=== PATIENT | female | born 1935 | race Caucasian/White ===

== ENCOUNTER → 2019-07-08 15:58 | Outpatient (BNVA) | payer MEDICARE, BC, SELFPAY | PROVIDERS: Visit Provider Nurse Practitioner Family | DX: J02.9 Acute pharyngitis, unspecified (principal); J01.90 Acute sinusitis, unspecified; I10 Essential (primary) hypertension | CPT/HCPCS: 87880 ==

== ENCOUNTER → 2019-12-22 09:55 | Outpatient (BNVA) | payer MEDICARE, BC, SELFPAY | PROVIDERS: Visit Provider Nurse Practitioner Family | DX: Z20.828 Contact with and (suspected) exposure to other viral communicable diseases (principal) | CPT/HCPCS: 87635 ==

== ENCOUNTER → 2019-12-29 11:18 | Outpatient (BNVA) | payer MEDICARE, BC, SELFPAY | PROVIDERS: Visit Provider Nurse Practitioner Family | DX: E03.9 Hypothyroidism, unspecified (principal); E55.9 Vitamin D deficiency, unspecified; I10 Essential (primary) hypertension | CPT/HCPCS: 80053; 80061; 82306; 84443; 85025 ==

== ENCOUNTER → 2020-09-14 13:10 | Outpatient (BNVA) | payer MEDICARE, BC, SELFPAY | PROVIDERS: PCP Nurse Practitioner Family; Visit Provider Nurse Practitioner Family | DX: E55.9 Vitamin D deficiency, unspecified (principal); I10 Essential (primary) hypertension; E78.5 Hyperlipidemia, unspecified; M25.551 Pain in right hip; Z79.899 Other long term (current) drug therapy | CPT/HCPCS: 80053; 80061; 82306; 84443; 85025 ==

== ENCOUNTER → 2021-02-21 17:16 | Outpatient (BNVA) | payer MEDICARE, BC, SELFPAY | PROVIDERS: PCP Nurse Practitioner Family; Visit Provider Nurse Practitioner Family | DX: J32.9 Chronic sinusitis, unspecified (principal) | CPT/HCPCS: 87400; 87635 ==

== ENCOUNTER → 2021-03-10 11:54 | Outpatient (BNVA) | payer MEDICARE, BC, SELFPAY | PROVIDERS: PCP Nurse Practitioner Family; Visit Provider Nurse Practitioner Family | DX: E78.5 Hyperlipidemia, unspecified (principal); E03.9 Hypothyroidism, unspecified; E55.9 Vitamin D deficiency, unspecified; K21.9 Gastro-esophageal reflux disease without esophagitis; I10 Essential (primary) hypertension | CPT/HCPCS: 80053; 80061; 82306; 82607; 84439; 84443; 85025 ==

== ENCOUNTER → 2022-04-11 17:07 | Outpatient (BNVA) | payer MEDICARE, BC, SELFPAY | PROVIDERS: PCP Nurse Practitioner Family; Visit Provider Nurse Practitioner Family | DX: I10 Essential (primary) hypertension (principal); E55.9 Vitamin D deficiency, unspecified; R73.9 Hyperglycemia, unspecified | CPT/HCPCS: 80053; 80061; 82306; 83036; 84443; 85025 ==

== ENCOUNTER 2022-07-07 12:10 | Observation (INO) | payer MEDICARE, BC, SELFPAY ==
[2022-07-07] VITALS (8 sets, daily range): BP systolic 138–197; BP diastolic 69–83; PULSE 63–87; RESP 16–21; TEMP 36.6–36.7; O2SAT 96–97; BMI 27.8
--- NOTE | 2022-07-07 12:21 | W.ED.DIZZY ---
HPI - Dizziness General: Chief Complaint: Dizziness Stated Complaint: pt thinks she is having mini strokes Time Seen by Provider: 07/07/22 12:15 History of Present Illness: HPI Narrative: Ms Gardiner is an 87-year-old lady with history of hypertension, hyperlipidemia, prior stroke, thyroid disorder presenting to the emergency department for concern over possible recurrent TIA symptoms. She endorses 3 days ago having sudden onset of unsteady feeling associated with headache and higher than normal blood pressure. Since that time she has had recurrence and more constant symptoms starting today. She endorses a slightly abnormal feeling in her right hand associated with this. Also endorses chest discomfort with the higher than normal blood pressure without other typical cardiac features. Denies any infectious symptoms. Overall course has increased in duration and intensity. Intensity is overall mild to moderate. No other specific changes in health, exacerbating, or alleviating factors identified. Onset (ago): day(s) Timing: intermittent Description: off-balance History of similar symptoms: Yes Exacerbating factors: nothing Relieving factors: nothing Associated symptoms: Reports chest pain, headache(s) and malaise Associated neuro symptoms: Reports extremity weakness; Deny numbness in extremities or visual changes Review of Systems General: Reports: 10 or more systems reviewed and unremarkable except in HPI and below Const: Reports: malaise Card: Reports: chest pain Neuro: Reports: headache(s); Denies: numbness in extremities PFSH ED PFSH: Medical History Chronic osteoarthritis Essential (primary) hypertension Hyperlipidemia, unspecified Metabolic syndrome Migraine with aura and with status migrainosus, not intractable Vitamin D deficiency Surgical History H/O: hysterectomy History of back surgery (~2010) Hx of breast biopsy (~1983) negative results Family History (System 07/13/22 @ 11:40 by Amy Dumont) Brother Cancer lung Father Stroke Mother Pulmonary embolism Social History (System 07/13/22 @ 11:40 by Amy Dumont) Smoking and tobacco status: never smoked Alcohol intake: never Lives independently: Yes Household members: children Housing: House Marital status: / Current occupational status: retired Current gender identity: Female Physical Exam Const: COMMON NORMALS: patient oriented x3 and alert GENERAL APPEARANCE: cooperative and well developed HENMT: COMMON NORMALS: normocephalic, atraumatic, moist oral mucous membranes and oropharynx normal HEAD & SCALP: normocephalic and atraumatic Eye: COMMON NORMALS: conjunctivae normal CONJUNCTIVA: Yes conjunctivae normal SCLERA: sclerae normal Neck/C-Spine: COMMON NORMALS: supple GENERAL: Yes trachea midline Resp: COMMON NORMALS: normal respiratory effort EFFORT & INSPECTION: Yes able to speak in complete sentences Cardio: COMMON NORMALS: regular rate and regular rhythm RATE: regular rate RHYTHM: regular rhythm GI: COMMON NORMALS: Soft to palpation PALPATION: Yes Soft to palpation and No Tenderness to palpation present (GI) PERCUSSION: normal to percussion Extremity: GENERAL: Yes normal exam except as noted and No edema Neuro: COMMON NORMALS: patient oriented x3, CN's II-XII intact bilaterally, moves all extremities, no focal motor deficits, no sensory deficits noted and gait normal SENSORIUM/ORIENTATION: Yes alert and No Orientation impaired Psych: COMMON NORMALS: mental status grossly normal and Normal thought process present THOUGHT PROCESS: Normal thought process present Course Vital Signs: Vital signs: Vital Signs Temperature 98.2 F 07/08/22 12:00 Pulse Rate 58 L 07/08/22 12:00 Respiratory Rate 15 07/08/22 12:00 Blood Pressure 152/75 07/08/22 12:00 Pulse Oximetry 96 07/08/22 12:00 Oxygen Delivery Me thod Room Air 07/08/22 12:00 MDM - Dizziness Medical Decision Making 87-year-old lady presented transient strokelike symptoms. Exam as above with no focal current symptoms. She is nontoxic in appearance. EKG demonstrates sinus rhythm with left axis deviation, there are nonspecific ST segment abnormalities, no STEMI. Labs with no significant hematologic or metabolic abnormality to explain symptoms. Negative range 2-hour delta troponin. No UTI. Chest x-ray with no lobar consolidation or pneumothorax. CT/CTA demonstrates no large vessel occlusion, intracranial hemorrhage or mass. Discussed with [facility] stroke neurologist. Recommend 24-hour observation with MRI. Recommend permissive hypertension up to 220 systolic for 1 day and subsequently few weeks of 160 systolic permissive hypertension. Dual antiplatelet therapy with increase of aspirin to 325 mg daily. Increase statin. Most likely allergy patient symptoms is brain TIAs. The results of ED evaluation were discussed with the patient including plan for admission due to requirement for level of care not available if discharged to prevent significant worsening/deterioration. Patient agreeable with plan. Discussed with hospitalist service who was agreeable to admit patient. Medical Records I reviewed the patient's medical records. Lab Data I reviewed the patient's lab results. 07/08/22 04:45 07/08/22 04:45 Radiology Impressions Chest X-Ray 07/07/22 12:33 IMPRESSION: No acute findings. Head/Neck CTA 07/07/22 12:39 IMPRESSION: No large vessel stenosis or occlusion. IMPRESSION: No stenosis or occlusion. REFERENCES: NASCET CRITERIA. The degree of stenosis in the cervical segment of the internal carotid artery is based on NASCET criteria. Normal is no stenosis. Mild is less than 50% stenosis. Moderate is 50-69% stenosis. Severe is 70% to 99% stenosis. Total occlusion is no detectable patent lumen. Laboratory Results WBC 7.0 10^3/uL (4.0-10.0) 07/07/22 12:59 RBC 4.16 10^6/uL (4.1-5.3) 07/07/22 12:59 Hgb 12.7 g/dL (11.5-15.3) 07/07/22 12:59 Hct 39.9 % (37.0-47.0) 07/07/22 12:59 MCV 95.9 fl (81-99) 07/07/22 12:59 MCH 30.5 pg (28.0-34.0) 07/07/22 12:59 MCHC 31.8 g/dL (30.0-36.0) 07/07/22 12:59 RDW 13.2 % (12.1-15.1) 07/07/22 12:59 Plt Count 251 10^3/cmm (130-400) 07/07/22 12:59 MPV 11.3 fL (7.4-10.4) H 07/07/22 12:59 Neut % (Auto) 61.9 % 07/07/22 12:59 Lymph % (Auto) 25.6 % 07/07/22 12:59 [place] % (Auto) 9.1 % 07/07/22 12:59 Eos % (Auto) 2.4 % 07/07/22 12:59 Baso % (Auto) 0.4 % 07/07/22 12:59 Neut # (Auto) 4.30 10^3/uL (1.8-7.7) 07/07/22 12:59 Lymph # (Auto) 1.8 10^3/uL (0.8-4.8) 07/07/22 12:59 [place] # (Auto) 0.6 10^3/uL (0.2-0.9) 07/07/22 12:59 Eos # (Auto) 0.2 10^3/uL (0.0-0.8) 07/07/22 12:59 Baso # (Auto) 0.0 10^3/uL (0.0-0.1) 07/07/22 12:59 Nucleated RBC % (auto) 0 % 07/07/22 12:59 Nucleated RBCs # 0.0 /100WBC 07/07/22 12:59 Sodium 142 mmol/L (136-145) 07/07/22 12:59 Potassium 3.8 mmol/L (3.5-5.1) 07/07/22 12:59 Chloride 104 mmol/L (98-107) 07/07/22 12:59 Carbon Dioxide 24 mmol/L (22-29) 07/07/22 12:59 Anion Gap 17.8 (5-19) 07/07/22 12:59 BUN 18 mg/dL (8-23) 07/07/22 12:59 Creatinine 1.0 mg/dL (0.5-0.9) H 07/07/22 12:59 GFR Calculation Not Reportable 07/07/22 12:59 Glucose 132 mg/dL (65-115) H 07/07/22 12:59 Estimat Average Glucose 126 07/07/22 12:57 Hemoglobin A1c 6.0 % (4.0-6.0) 07/07/22 12:57 Calculated Osmolality 298 mOsm/kg (285-295) H 07/07/22 12:59 Calcium 9.9 mg/dL (8.5-10.5) 07/07/22 12:59 Magnesium 1.7 mg/dL (1.7-2.3) 07/07/22 12:59 Total Bilirubin 0.2 mg/dL (0.15-1.2) 07/07/22 12:59 AST 18 U/L (0-32) 07/07/22 12:59 ALT 15 U/L (0-33) 07/07/22 12:59 Alkaline Phosphatase 62 U/L (35-105) 07/07/22 12:59 Troponin T Baseline 11 ng/L (0-10) H 07/07/22 12:59 Troponin T 120 Minute 9.59 ng/L (0-10) 07/07/22 14:50 Delta Troponin T -1.41 ABS# (0-10) L 07/07/22 14:50 NT-Pro-B Natriuret Pep 309 pg/mL (0-450) 07/07/22 12:59 NT-Pro-B Natriuret Pep 318 pg/mL (0-450) 07/07/22 12:59 Total Protein 7.1 g/dL (6.6-8.7) 07/07/22 12:59 Albumin 4.8 g/dL (3.5-5.2) 07/07/22 12:59 Globulin 2.3 g/dL (1.3-4.6) 07/07/22 12:59 Triglycerides 128 mg/dL (0-150) 07/07/22 12:59 Cholesterol 153 mg/dL (0-200) 07/07/22 12:59 LDL Cholesterol, Calc 78 mg/dL (50-129) 07/07/22 12:59 HDL Cholesterol 49 mg/dL (60-100) L 07/07/22 12:59 LDL/HDL Ratio 1.59 RATIO (0.00-3.22) 07/07/22 12:59 Cholesterol/HDL Ratio 3.12 mg/dL (0.0-4.40) 07/07/22 12:59 TSH 3.31 uIU/mL (0.27-4.20) 07/07/22 12:59 Urine Color Yellow (Yellow) 07/07/22 12:50 Urine Appearance Clear (CLEAR) 07/07/22 12:50 Urine pH 5 (5-7) 07/07/22 12:50 Ur Specific [place] 1.010 (1.005-1.030) 07/07/22 12:50 Urine Protein Neg (Negative) 07/07/22 12:50 Urine Glucose (UA) Norm (Normal) 07/07/22 12:50 Urine Ketones Negative (Negative) 07/07/22 12:50 Urine Blood Neg (Negative) 07/07/22 12:50 Urine Nitrate Negative (Negative) 07/07/22 12:50 Urine Bilirubin Neg (Negative) 07/07/22 12:50 Urine Urobilinogen Norm mg/dL (Negative) 07/07/22 12:50 Ur Leukocyte Esterase Negative (Negative) 07/07/22 12:50 Discharge Plan Discharge Patient Disposition: Placed in Observation Admit Provider: Trevor Lindquist Clinical Impression: Stroke-like symptoms Discharge Diet: Cardiac Discharge Activity: Resume usual activity Coding Level of Care Code ED Prorate Clerk for Jaren Moralez
--- NOTE | 2022-07-07 12:33 | ECG_ITS ---
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1935 Requested By: Maury Rodriguez Order Number: [id number] Иван MD: Franco Brown Measurements Intervals [place] Rate: 62 P: 156 MN: 197 QRS: -22 QRSD: 97 T: -9 QT: 383 QTc: 391 Interpretive Statements SINUS RHYTHM VOLTAGE CRITERIA FOR LVH [MEETS CRITERIA IN ONE OF: R(aVL), S(V1), R(V5), R(V5/V6)+S(V1)] POSSIBLE ANTEROSEPTAL MYOCARDIAL INFARCTION , OF INDETERMINATE AGE [30 ms Q WAVE IN V1-V4] Compared to ECG 04/26/2018 17:37:29 Myocardial infarct finding now present Electronically Signed On 07-08-2022 19:02:09 CDT by Franco Brown [id number]
--- NOTE | 2022-07-07 12:33 | XRR_ITS ---
PROCEDURE INFORMATION: Exam: XR Chest Exam date and time: 07/07/2022 12:38 PM Age: 87 years old Clinical indication: Other: Chest pressure; Additional info: Chest discomfort TECHNIQUE: Imaging protocol: Radiologic exam of the chest. Views: 1 view. COMPARISON: CR XR chest 1V [id number] 04/16/2018 9:35 AM FINDINGS: Lungs: Unremarkable. No consolidation. Pleural spaces: Unremarkable. No pleural effusion. No pneumothorax. Heart/Mediastinum: Unremarkable. No cardiomegaly. Bones/joints: Unremarkable. Similar findings are present comparing to prior examination XR/XR chest 1V portable [id number] IMPRESSION: No acute findings.
--- NOTE | 2022-07-07 12:39 | CTR_ITS ---
PROCEDURE INFORMATION: Exam: CTA Head With Contrast, Arteriography Exam date and time: 07/07/2022 2:00 PM Age: 87 years old Clinical indication: Vertigo; Additional info: TIA symptoms, unsteady, R hand paresthesia, atypical headaches TECHNIQUE: Imaging protocol: Computed tomographic angiography of the head with contrast. Exam focused on the arteries. 3D rendering (Not supervised by radiologist): MIP and/or 3D reconstructed images were created by the technologist. Radiation optimization: All CT scans at this facility use at least one of these dose optimization techniques: automated exposure control; mA and/or kV adjustment per patient size (includes targeted exams where dose is matched to clinical indication); or iterative reconstruction. Contrast material: OMNI 350; Contrast volume: 100 ml; Contrast route: INTRAVENOUS (IV); REPORTING DATA: Count of CT and Cardiac NM exams in prior 12 months: This patient has received 0 known CTs and 0 known cardiac nuclear medicine studies in the 12 months prior to the current study. COMPARISON: MR head wo con* [id number] 05/21/2018 6:38 PM RADIATION DOSE METRICS: Total DLP (mGy-cm): 1643 FINDINGS: ANTERIOR CIRCULATION: Right internal carotid artery: Intracranial segment is patent with no significant stenosis. No aneurysm. Right middle cerebral artery: No occlusion or significant stenosis. No aneurysm. Right anterior cerebral artery: No occlusion or significant stenosis. No aneurysm. Left internal carotid artery: Intracranial segment is patent with no significant stenosis. No aneurysm. Left middle cerebral artery: No occlusion or significant stenosis. No aneurysm. Left anterior cerebral artery: No occlusion or significant stenosis. No aneurysm. POSTERIOR CIRCULATION: Right vertebral artery: No occlusion or significant stenosis. No aneurysm. Left vertebral artery: No occlusion or significant stenosis. No aneurysm. Basilar artery: No occlusion or significant stenosis. No aneurysm. Right posterior cerebral artery: No occlusion or significant stenosis. No aneurysm. Left posterior cerebral artery: No occlusion or significant stenosis. No aneurysm. Brain: No definite mass, mass effect, or midline shift. Cerebral ventricles: No ventriculomegaly. Bones/joints: Unremarkable. No acute fracture. Soft tissues: Unremarkable. PROCEDURE INFORMATION: Exam: CTA Neck With Contrast Exam date and time: 07/07/2022 2:00 PM Age: 87 years old Clinical indication: Vertigo; Additional info: TIA symptoms, unsteady, R hand paresthesia, atypical headaches TECHNIQUE: Imaging protocol: Computed tomographic angiography of the neck with contrast. 3D rendering (Not supervised by radiologist): MIP and/or 3D reconstructed images were created by the technologist. Radiation optimization: All CT scans at this facility use at least one of these dose optimization techniques: automated exposure control; mA and/or kV adjustment per patient size (includes targeted exams where dose is matched to clinical indication); or iterative reconstruction. Contrast material: OMNI 350; Contrast volume: 100 ml; Contrast route: INTRAVENOUS (IV); REPORTING DATA: Count of CT and Cardiac NM exams in prior 12 months: This patient has received 0 known CTs and 0 known cardiac nuclear medicine studies in the 12 months prior to the current study. COMPARISON: CT angio neck [id number] 04/27/2018 3:17 PM RADIATION DOSE METRICS: Total DLP (mGy-cm): 925.7 FINDINGS: Right common carotid artery: No stenosis. No dissection or occlusion. Right internal carotid artery: No stenosis of the extracranial segment. No dissection or occlusion. Calcification near the proximal ICA Right external carotid artery: No occlusion or stenosis of the origin. Left common carotid artery: No stenosis. No dissection or occlusion. Left internal carotid artery: No stenosis of the extracranial segment. No dissection or occlusion. Nonocclusive calcification of the proximal ICA Left external carotid artery: No occlusion or stenosis of the origin. Right vertebral artery: No stenosis. No dissection or occlusion. Left vertebral artery: No stenosis. No dissection or occlusion. Soft tissues: Normal. No significant soft tissue swelling. Bones/joints: No acute fracture. CT/CT angio headneck* [id number] IMPRESSION: No large vessel stenosis or occlusion. IMPRESSION: No stenosis or occlusion. REFERENCES: NASCET CRITERIA. The degree of stenosis in the cervical segment of the internal carotid artery is based on NASCET criteria. Normal is no stenosis. Mild is less than 50% stenosis. Moderate is 50-69% stenosis. Severe is 70% to 99% stenosis. Total occlusion is no detectable patent lumen.
[2022-07-07 13:22] LABS: Basophils % 0.4 %; Eosinophils # 0.2 10^3/uL (0.0-0.8); Eosinophils % 2.4 %; Hematocrit 39.9 % (37.0-47.0); Hemoglobin 12.7 g/dL (11.5-15.3); Lymphocytes # 1.8 10^3/uL (0.8-4.8); Lymphocytes % 25.6 %; Mean Corpuscular HGB Conc 31.8 g/dL (30.0-36.0); Mean Corpuscular Hemoglobin 30.5 pg (28.0-34.0); Mean Corpuscular Volume 95.9 fl (81-99); Mean Platelet Volume 11.3 fL (7.4-10.4); Monocytes # 0.6 10^3/uL (0.2-0.9); Monocytes % 9.1 %; Neutrophils % 61.9 %; Nucleated Red Blood Cells % 0 %; Platelet Count 251 10^3/cmm (130-400); Red Blood Count 4.16 10^6/uL (4.1-5.3); Red Cell Distribution Width 13.2 % (12.1-15.1)
[2022-07-07 13:44] LABS: Troponin(5th) Baseline 11 ng/L (0-10)
[2022-07-07 13:46] LABS: Alanine Aminotransferase 15 U/L (0-33); Albumin Level 4.8 g/dL (3.5-5.2); Alkaline Phosphatase 62 U/L (35-105); Anion Gap 17.8 (5-19); Aspartate Amino Transferase 18 U/L (0-32); Blood Urea Nitrogen 18 mg/dL (8-23); Calcium 9.9 mg/dL (8.5-10.5); Carbon Dioxide 24 mmol/L (22-29); Chloride 104 mmol/L (98-107); Globulin 2.3 g/dL (1.3-4.6); Glucose 132 mg/dL (65-115); Magnesium 1.7 mg/dL (1.7-2.3); Osmolality Calculated 298 mOsm/kg (285-295); Potassium 3.8 mmol/L (3.5-5.1); Sodium 142 mmol/L (136-145); Total Bilirubin 0.2 mg/dL (0.15-1.2); Total Protein 7.1 g/dL (6.6-8.7)
[2022-07-07 13:59] LABS: Add Urine Microscopic? NO; Charge for UA Resulting for Rev
[2022-07-07 14:15] LABS: Bilirubin Urine Neg (Negative); Blood Urine Neg (Negative); Glucose Urine UA Norm (Normal); Ketones Urine Negative (Negative); Leukocyte Esterase Urine Negative (Negative); Nitrate Urine Negative (Negative); Protein Urine Neg (Negative); Urine Appearance Clear (CLEAR); Urine Color Yellow (Yellow); Urobilinogen Urine Norm (Negative); pH Urine 5 (5-7)
--- NOTE | 2022-07-07 14:33 | ECG_ITS ---
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1935 Requested By: Maury Rodriguez Order Number: [id number] Иван MD: Franco Brown Measurements Intervals [place] Rate: 63 P: 115 AK: 188 QRS: -21 QRSD: 93 T: -13 QT: 378 QTc: 389 Interpretive Statements SINUS RHYTHM VOLTAGE CRITERIA FOR LVH [MEETS CRITERIA IN ONE OF: R(aVL), S(V1), R(V5), R(V5/V6)+S(V1)] POSSIBLE SEPTAL MYOCARDIAL INFARCTION , OF INDETERMINATE AGE [30 ms Q WAVE IN V1/V2] Compared to ECG 07/07/2022 12:38:27 No significant changes Electronically Signed On 07-08-2022 19:05:39 CDT by Franco Brown [email or web address]/store/[id number]
[2022-07-07] MEDS: iohexol 350 mg/mL 500 mL Btl (per mL) IV (14:37)
[2022-07-07 15:06] LABS: NT Pro B Type Natriuretic Pept 318 pg/mL (0-450); Thyroid Stimulating Hormone 3.31 uIU/mL (0.27-4.20)
[2022-07-07 15:24] LABS: Troponin 5 2HR 9.59 ng/L (0-10)
[2022-07-07 15:46] LABS: Troponin 5 2HR Delta -1.41 ABS# (0-10)
--- NOTE | 2022-07-07 16:29 | PM.HP ---
Providers/Chief Complaint Primary Care Provider: ALTON Claudio Chief Complaint: pt thinks she is having mini strokes History of Present Illness Citlalli Gardiner is a 87 year old female with a past medical history of CVA no residual deficits, history of bilateral cerebellar lacunar infarcts, history of hypertension, hyperlipidemia, hypothyroidism who presents to [facility] for the last 2 to 3 days she has had feelings of unsteadiness, dizziness, feeling not right in her head she tells me, no slurring of her words, but she does notice numbness of her right hand, no trouble coordinating, she does have trouble coming up with words, since then her blood pressures have been higher than normal, currently she is alert oriented x3, follows all commands, no focal weakness, no slurring of her words, no word finding difficulty NIH stroke scale 0, she does tell me that when she opens her eyes she feels more dizzy, or when she walks, she feels unsteady on her feet, no falls, no injuries, no dysuria, no hematuria, no chest pain, no palpitations, but she does feel a sensation of almost like a having a hot flash that comes on that starts at her neck level and radiates to her head, when she feels dizzy Review of Systems Const: Denies: fever(s) Eyes: Denies: change in vision ENMT: Denies: nasal congestion Resp: Denies: dyspnea, productive cough, non-productive cough or wheezing GI: Denies: abdominal pain, nausea or vomiting : Denies: dysuria Musc: Denies: neck pain or back pain Skin/Breast: Denies: rash Neuro: Reports: headache(s), numbness in extremities and dizziness; Denies: vertigo Psych: Denies: anxiety or depression Endo: Denies: polyuria or polydipsia Medications/Allergies Home Medications Medication Instructions Recorded Confirmed Last Taken Type aspirin 81 mg tablet,delayed 81 mg PO DAILY 04/21/19 07/07/22 07/07/22 History release ergocalciferol (vitamin D2) 50 mcg 2,000 unit PO DAILY 04/21/19 07/07/22 07/07/22 History (2,000 unit) tablet furosemide 40 mg tablet 40 mg PO QAM #90 tabs 04/11/22 07/07/22 07/07/22 Rx pantoprazole 40 mg tablet,delayed 40 mg PO DAILY #14 tabs 04/11/22 07/07/22 07/07/22 Rx release (Protonix) lisinopril 20 mg tablet 20 mg PO BID #180 tabs 04/18/22 07/07/22 07/07/22 Rx levothyroxine 25 mcg tablet 25 mcg PO DAILY #90 tabs 05/04/22 07/07/22 07/06/22 Rx amlodipine 10 mg tablet 10 mg PO BEDTIME 07/07/22 07/07/22 07/06/22 History clopidogrel 75 mg tablet 75 mg PO DAILY 07/07/22 07/07/22 07/07/22 History hydralazine 25 mg tablet 25 mg PO DAILY PRN Blood Pressure 07/07/22 07/07/22 Unknown History metoprolol tartrate 50 mg tablet 50 mg PO BID 07/07/22 07/07/22 07/07/22 History simvastatin 20 mg tablet 20 mg PO DAILY 07/07/22 07/07/22 07/06/22 History Allergies Allergy/AdvReac Type Severity Reaction Status Date / Time Penicillins Allergy Intermediate rash, Verified 04/11/22 15:00 vomiting venlafaxine [From Effexor] Allergy Unknown Unknown Verified 04/11/22 15:00 PFSH Acute PFSH: Medical History Chronic osteoarthritis Essential (primary) hypertension Hyperlipidemia, unspecified Metabolic syndrome Migraine with aura and with status migrainosus, not intractable Vitamin D deficiency Surgical History H/O: hysterectomy History of back surgery (~2010) Hx of breast biopsy (~1983) negative results Family History Brother Cancer lung Father Stroke Mother Pulmonary embolism Social History Smoking and tobacco status: never smoked Alcohol intake: never Lives independently: Yes Household members: children Housing: House Marital status: / Current occupational status: retired Current gender identity: Female Vitals/I&O/Wt Last Vital Signs Temp 97.9 F 07/07/22 12:17 Pulse 75 07/07/22 15:39 Resp 16 07/07/22 15:39 BP 144/83 07/07/22 15:39 Pulse Ox 97 07/07/22 12:17 O2 Del Method 07/07/22 12:17 Weight last 48 hrs Weight 68.946 kg Physical Exam Const: COMMON NORMALS: no acute distress and patient oriented x3 Resp: COMMON NORMALS: normal respiratory effort, No retractions, No use of accessory muscles and clear to auscultation bilaterally AUSCULTATION: clear to auscultation bilaterally Cardio: COMMON NORMALS: regular rate, regular rhythm, S1 normal heart sound present and S2 normal heart sound present RATE: regular rate RHYTHM: regular rhythm HEART SOUNDS: S1 normal heart sound present and S2 normal heart sound present GI: COMMON NORMALS: Normal to inspection, nondistended, normoactive bowel sounds present, Soft to palpation, non-tender and No hepatosplenomegaly present Extremity: COMMON NORMALS: no pedal edema Neuro: COMMON NORMALS: patient oriented x3, CN's II-XII intact bilaterally, moves all extremities and no focal motor deficits Psych: COMMON NORMALS: mental status grossly normal Data 07/07/22 12:59 07/07/22 12:59 A&P Assessment and plan (1) CVA (cerebral vascular accident): (2) GERD (gastroesophageal reflux disease): (3) Hyperlipidemia, unspecified: Qualifiers: Hyperlipidemia type: unspecified Qualified Code(s): E78.5 - Hyperlipidemia, unspecified (4) Essential (primary) hypertension: Plan Acute CVA -CT of the head no acute findings, CTA no acute findings -ER provider spoke to Krys, they recommended hospital admission, risk factor modification -We will allow for permissive hypertension treat if systolic greater than 220 or diastolic greater than 120 -Aspirin, Plavix, statin -Telemetry monitoring of cardiac echo -MRI of the brain -IV fluids -Monitor mentation closely -Does have a history of arachnoid cyst surgery, will consider MRI of the lumbar spine -Lipid panel, A1c -Full code -Lovenox for DVT prophylaxis Attestations Medical Necessity Statement*: Patient requires hospitalization for acute CVA, outpatient with observation Coding Level of Care Code Acute Code for [facility] Fwd Diagnoses CVA (cerebral vascular accident) I63.9 GERD (gastroesophageal reflux disease) K21.9 Hyperlipidemia, unspecified E78.5 Hyperlipidemia type: unspecified Essential (primary) hypertension I10
[2022-07-07 17:42] LABS: NT Pro B Type Natriuretic Pept 309 pg/mL (0-450)
--- NOTE | 2022-07-07 18:04 | ECG_ITS ---
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1935 Requested By: Maury Rodriguez Order Number: [id number] Reading MD: Franco Brown Measurements Intervals [place] Rate: 62 P: 65 SD: 187 QRS: -11 QRSD: 97 T: 15 QT: 388 QTc: 397 Interpretive Statements SINUS RHYTHM VOLTAGE CRITERIA FOR LVH [MEETS CRITERIA IN ONE OF: R(aVL), S(V1), R(V5), R(V5/V6)+S(V1)] POSSIBLE SEPTAL MYOCARDIAL INFARCTION , OF INDETERMINATE AGE [30 ms Q WAVE IN V1/V2] Compared to ECG 07/07/2022 14:37:29 No significant changes Electronically Signed On 07-08-2022 19:05:37 CDT by Franco Brown [id number]
[2022-07-07 19:53] LABS: Chol HDL Ratio 3.12 mg/dL (0.0-4.40); Cholesterol 153 mg/dL (0-200); HDL Cholesterol 49 mg/dL (60-100); LDL Cholesterol Calculated 78 mg/dL (50-129); LDL HDL Ratio 1.59 RATIO (0.00-3.22); Triglycerides 128 mg/dL (0-150)
[2022-07-07 20:21] LABS: Estmated Average Glucose 126
[2022-07-07 20:29] LABS: Troponin 5 6HR 12.36 ng/L (0-10); Troponin 5 6HR Delta 1.36 ng/L (0-12)
[2022-07-07] MEDS: enoxaparin 40 mg/0.4 mL Syringe SUBCUT (20:50)
[2022-07-07] MEDS: sodium chloride 0.9% 1,000 ML 75 ML IV (20:51)
[2022-07-07] MEDS: acetaminophen 325 mg Tablet 650 MG PO (21:41)
[2022-07-08 04:00] VITALS: BP 178/68; PULSE 60; RESP 15; TEMP 36.6; O2SAT 96
[2022-07-08 05:27] LABS: Basophils % 0.5 %; Eosinophils # 0.2 10^3/uL (0.0-0.8); Eosinophils % 2.7 %; Hematocrit 37.2 % (37.0-47.0); Hemoglobin 11.9 g/dL (11.5-15.3); Lymphocytes # 1.8 10^3/uL (0.8-4.8); Lymphocytes % 26.7 %; Mean Corpuscular Hemoglobin 30.4 pg (28.0-34.0); Mean Corpuscular Volume 94.9 fl (81-99); Mean Platelet Volume 11.7 fL (7.4-10.4); Monocytes # 0.8 10^3/uL (0.2-0.9); Monocytes % 11.8 %; Neutrophils # 3.86 10^3/uL (1.8-7.7); Neutrophils % 58.1 %; Nucleated Red Blood Cells % 0 %; Platelet Count 224 10^3/cmm (130-400); Red Blood Count 3.92 10^6/uL (4.1-5.3); Red Cell Distribution Width 13.3 % (12.1-15.1); White Blood Count 6.6 10^3/uL (4.0-10.0)
[2022-07-08 05:46] LABS: Alanine Aminotransferase 12 U/L (0-33); Albumin Level 4.2 g/dL (3.5-5.2); Alkaline Phosphatase 52 U/L (35-105); Anion Gap 13.4 (5-19); Aspartate Amino Transferase 16 U/L (0-32); Blood Urea Nitrogen 13 mg/dL (8-23); Calcium 8.9 mg/dL (8.5-10.5); Carbon Dioxide 23 mmol/L (22-29); Chloride 109 mmol/L (98-107); Globulin 2.1 g/dL (1.3-4.6); Glucose 102 mg/dL (65-115); Magnesium 1.6 mg/dL (1.7-2.3); Osmolality Calculated 294 mOsm/kg (285-295); Phosphorus 3.1 mg/dL (2.5-4.5); Potassium 3.4 mmol/L (3.5-5.1); Sodium 142 mmol/L (136-145); Total Bilirubin 0.3 mg/dL (0.15-1.2); Total Protein 6.3 g/dL (6.6-8.7)
--- NOTE | 2022-07-08 06:00 | USCV_ITS ---
Citlalli Gardiner Age: 87 Gender: F : 1935 Exam Date: 07/08/2022 10:23 Ordering Phys: Trevor Lindquist MD Technologist: GONZALO Exam Location: [facility] [place] Indication: cva BP: / HR: 67 Rhythm: Sinus Technical Quality: TDS MEASUREMENTS (Male / Female) Normal Values 2D ECHO LV Diastolic Diameter PLAX 5.0 cm 4.2 - 5.9 / 3.9 - 5.3 cm LV Systolic Diameter PLAX 3.5 cm IVS Diastolic Thickness 0.7 cm 0.6 - 1.0 / 0.6 - 0.9 cm IVS Systolic Thickness 1.2 cm LVPW Diastolic Thickness 0.7 cm 0.6 - 1.0 / 0.6 - 0.9 cm LVPW Systolic Thickness 1.0 cm LVOT Diameter 1.9 cm LV Ejection Fraction 2D Teich 57.3 % LV Ejection Fraction MOD 2C 55.5 % LV Ejection Fraction 2C AL 55.8 % LA Diameter 3.4 cm M-MODE Aortic Annulus Diameter 2.3 cm LA Ao Ratio MM 1.5 MV E Point Septal Separation 0.6 cm DOPPLER AV Peak Velocity 149.0 cm/s LVOT Peak Velocity 107.0 cm/s AV Area Cont Eq vti 2.2 cm squared AV Area Cont Eq pk 2.0 cm squared MV Area PHT 3.0 cm squared Mitral E to A Ratio 0.8 MV E' Velocity 60.0 cm/s Mitral E to MV E' Ratio 14.3 Mitral E to LV E' Lateral Ratio 12.4 Mitral E to LV E' Septal Ratio 17.1 TR Peak Velocity 297.4 cm/s TR Peak Gradient 35.4 mmHg TV Peak E Velocity 63.0 cm/s Right Atrial Pressure 6.0 mmHg Pulmonary Artery Systolic Pressu 41.4 mmHg PV Peak Velocity 103.0 cm/s FINDINGS Left Ventricle Normal left ventricular size, systolic function and wall thickness, with no regional wall motion abnormalities. Normal left ventricular wall thickness. Diastolic filling pattern consistent with stage I dysfunction (mild). Mildly increased left ventricular end diastolic volume. Right Ventricle The right ventricle is normal in size and function. Right Atrium The right atrium is normal in size. Left Atrium Moderately increased left atrial volume. Mildly increased left atrial area. Mitral Valve Structurally normal mitral valve without significant stenosis or prolapse. There is trace mitral regurgitation. Aortic Valve Structurally normal aortic valve without significant sclerosis or stenosis. There is no aortic regurgitation. Tricuspid Valve Structurally normal tricuspid valve without significant stenosis and trace regurgitation. Pulmonary artery systolic pressure mild to moderately elevated 45 mm Hg. Pulmonic Valve Structurally normal pulmonic valve without significant stenosis. There is trace pulmonic regurgitation. Pericardium Normal pericardium without effusion. Aorta Normal ascending aorta dimension. IVC The inferior vena cava not well visualized. CONCLUSIONS Normal left ventricular size, systolic function and wall thickness, with no regional wall motion abnormalities. Normal left ventricular wall thickness. Diastolic filling pattern consistent with stage I dysfunction (mild). Mildly increased left ventricular end diastolic volume. Moderately increased left atrial volume. Mildly increased left atrial area. Structurally normal tricuspid valve without significant stenosis and trace regurgitation. Pulmonary artery systolic pressure mild to moderately elevated 45 mm Hg. Franco Brown MD (Electronically Signed) Final Date: 08 July 2022 17:22 S
[2022-07-08 08:00] VITALS: BP 175/67; PULSE 69; RESP 14; TEMP 36.6; O2SAT 96
[2022-07-08] MEDS: potassium chloride ER 20 mEq Tablet 40 MEQ PO (08:54)
[2022-07-08] MEDS: lisinopril 20 mg Tablet PO (08:54)
[2022-07-08] MEDS: atorvastatin 40 mg Tablet PO (08:55)
[2022-07-08] MEDS: magnesium lactate 84 mg Tablet PO (08:55)
[2022-07-08] MEDS: levothyroxine 25 mcg Tablet PO (08:55)
[2022-07-08] MEDS: clopidogrel 75 mg Tablet PO (08:55)
[2022-07-08] MEDS: pantoprazole DR 40 mg Tablet PO (08:55)
[2022-07-08] MEDS: metoprolol tartrate 50 mg Tablet PO (08:55)
[2022-07-08] MEDS: aspirin 81 mg EC Tablet PO (08:55)
[2022-07-08] MEDS: acetaminophen 325 mg Tablet 650 MG PO (08:59)
--- NOTE | 2022-07-08 11:41 | PM.DCS ---
Discharge Providers Date of Admission: 07/07/22 15:38 Date of Discharge: July 08, 2022 Attending Provider at Admission: Trevor Lindquist MD Attending Provider at Discharge: Trevor Lindquist MD Primary Care Provider: ATLON Claudio Diagnoses at Discharge Discharge Diagnosis (1) CVA (cerebral vascular accident): Status: Acute (2) GERD (gastroesophageal reflux disease): Status: Acute (3) Hyperlipidemia, unspecified: Status: Acute Qualifiers: Hyperlipidemia type: unspecified Qualified Code(s): E78.5 - Hyperlipidemia, unspecified (4) Essential (primary) hypertension: Status: Acute Reason for Visit Reason for Visit: pt thinks she is having mini strokes Hospital Course Hospital Course Citlalli Gardiner is a 87 year old female with a past medical history of CVA no residual deficits, history of bilateral cerebellar lacunar infarcts, history of hypertension, hyperlipidemia, hypothyroidism who presents to [facility] for the last 2 to 3 days she has had feelings of unsteadiness, dizziness, feeling not right in her head she tells me, no slurring of her words, but she does notice numbness of her right hand, no trouble coordinating, she does have trouble coming up with words, since then her blood pressures have been higher than normal, currently she is alert oriented x3, follows all commands, no focal weakness, no slurring of her words, no word finding difficulty NIH stroke scale 0, she does tell me that when she opens her eyes she feels more dizzy, or when she walks, she feels unsteady on her feet, no falls, no injuries, no dysuria, no hematuria, no chest pain, no palpitations, but she does feel a sensation of almost like a having a hot flash that comes on that starts at her neck level and radiates to her head, when she feels dizzy Patient was admitted to [facility] for acute CVA, CT of the head no acute findings, CTA no acute findings, NIH stroke scale is 0, she is medically managed, continue aspirin, Plavix, statin, received IV fluids, permissive hypertension, clinically monitored. Overall she clinically remained asymptomatic, I recommended for her to spend another night in the hospital for monitoring and potentially MRI of the brain tomorrow however patient is adamant about discharge home. Discussed risks of early discharge, she voiced understanding, all questions answered, agreed to discharge today. She will be discharged this afternoon, after a blood pressure check. Discharged with close follow-up with primary care provider for blood pressure check. Follow-up with neurology in 2 weeks for consideration MRI of the brain, and MRI of the thoracic spine given her history of arachnoid cyst and surgery. Patient was advised if she has any recurrent strokelike symptoms, normal to go to emergency room Physical Exam Const: COMMON NORMALS: no acute distress and patient oriented x3 Resp: COMMON NORMALS: normal respiratory effort, No retractions, No use of accessory muscles and clear to auscultation bilaterally AUSCULTATION: clear to auscultation bilaterally Cardio: COMMON NORMALS: regular rate, regular rhythm, S1 normal heart sound present and S2 normal heart sound present RATE: regular rate RHYTHM: regular rhythm HEART SOUNDS: S1 normal heart sound present and S2 normal heart sound present GI: COMMON NORMALS: Normal to inspection, nondistended, normoactive bowel sounds present and non-tender Extremity: COMMON NORMALS: no pedal edema Neuro: COMMON NORMALS: patient oriented x3 Psych: COMMON NORMALS: mental status grossly normal Discharge Data Studies Completed and Pending Completed Studies During Hospitalization Category Date Time Status CTA head neck [CT angio headneck* [id number]] Stat Cat Scan 07/07/22 12:39 Completed XR chest 1V portable [id number] Stat Exams 07/07/22 12:33 Completed Pending at discharge Category Date Time Status Urinalysis Routine Lab 07/07/22 19:26 Ordered MR head wo con* [id number] Routine MRI 07/07/22 16:28 Ordered CV. echo complete* [id number] Stat Ultrasound 07/08/22 06:00 Ordered Radiology Impressions Chest X-Ray 07/07/22 12:33 IMPRESSION: No acute findings. Head/Neck CTA 07/07/22 12:39 IMPRESSION: No large vessel stenosis or occlusion. IMPRESSION: No stenosis or occlusion. REFERENCES: NASCET CRITERIA. The degree of stenosis in the cervical segment of the internal carotid artery is based on NASCET criteria. Normal is no stenosis. Mild is less than 50% stenosis. Moderate is 50-69% stenosis. Severe is 70% to 99% stenosis. Total occlusion is no detectable patent lumen. Laboratory Results WBC 6.6 10^3/uL (4.0-10.0) 07/08/22 04:45 RBC 3.92 10^6/uL (4.1-5.3) L 07/08/22 04:45 Hgb 11.9 g/dL (11.5-15.3) 07/08/22 04:45 Hct 37.2 % (37.0-47.0) 07/08/22 04:45 MCV 94.9 fl (81-99) 07/08/22 04:45 MCH 30.4 pg (28.0-34.0) 07/08/22 04:45 MCHC 32.0 g/dL (30.0-36.0) 07/08/22 04:45 RDW 13.3 % (12.1-15.1) 07/08/22 04:45 Plt Count 224 10^3/cmm (130-400) 07/08/22 04:45 MPV 11.7 fL (7.4-10.4) H 07/08/22 04:45 Neut % (Auto) 58.1 % 07/08/22 04:45 Lymph % (Auto) 26.7 % 07/08/22 04:45 [place] % (Auto) 11.8 % 07/08/22 04:45 Eos % (Auto) 2.7 % 07/08/22 04:45 Baso % (Auto) 0.5 % 07/08/22 04:45 Neut # (Auto) 3.86 10^3/uL (1.8-7.7) 07/08/22 04:45 Lymph # (Auto) 1.8 10^3/uL (0.8-4.8) 07/08/22 04:45 [place] # (Auto) 0.8 10^3/uL (0.2-0.9) 07/08/22 04:45 Eos # (Auto) 0.2 10^3/uL (0.0-0.8) 07/08/22 04:45 Baso # (Auto) 0.0 10^3/uL (0.0-0.1) 07/08/22 04:45 Nucleated RBC % (auto) 0 % 07/08/22 04:45 Nucleated RBCs # 0.0 /100WBC 07/08/22 04:45 Sodium 142 mmol/L (136-145) 07/08/22 04:45 Potassium 3.4 mmol/L (3.5-5.1) L 07/08/22 04:45 Chloride 109 mmol/L (98-107) H 07/08/22 04:45 Carbon Dioxide 23 mmol/L (22-29) 07/08/22 04:45 Anion Gap 13.4 (5-19) 07/08/22 04:45 BUN 13 mg/dL (8-23) 07/08/22 04:45 Creatinine 0.7 mg/dL (0.5-0.9) 07/08/22 04:45 GFR Calculation Not Reportable 07/08/22 04:45 Glucose 102 mg/dL (65-115) 07/08/22 04:45 Estimat Average Glucose 126 07/07/22 12:57 Hemoglobin A1c 6.0 % (4.0-6.0) 07/07/22 12:57 Calculated Osmolality 294 mOsm/kg (285-295) 07/08/22 04:45 Calcium 8.9 mg/dL (8.5-10.5) 07/08/22 04:45 Phosphorus 3.1 mg/dL (2.5-4.5) 07/08/22 04:45 Magnesium 1.6 mg/dL (1.7-2.3) L 07/08/22 04:45 Total Bilirubin 0.3 mg/dL (0.15-1.2) 07/08/22 04:45 AST 16 U/L (0-32) 07/08/22 04:45 ALT 12 U/L (0-33) 07/08/22 04:45 Alkaline Phosphatase 52 U/L (35-105) 07/08/22 04:45 Troponin T Baseline 11 ng/L (0-10) H 07/07/22 12:59 Troponin T 120 Minute 9.59 ng/L (0-10) 07/07/22 14:50 Delta Troponin T -1.41 ABS# (0-10) L 07/07/22 14:50 Troponin T Hi Sens 6Hr 12.36 ng/L (0-10) H 07/07/22 19:15 Troponin T Hi Sens 6Hr Delta 1.36 ng/L (0-12) 07/07/22 19:15 NT-Pro-B Natriuret Pep 309 pg/mL (0-450) 07/07/22 12:59 NT-Pro-B Natriuret Pep 318 pg/mL (0-450) 07/07/22 12:59 Total Protein 6.3 g/dL (6.6-8.7) L 07/08/22 04:45 Albumin 4.2 g/dL (3.5-5.2) 07/08/22 04:45 Globulin 2.1 g/dL (1.3-4.6) 07/08/22 04:45 Triglycerides 128 mg/dL (0-150) 07/07/22 12:59 Cholesterol 153 mg/dL (0-200) 07/07/22 12:59 LDL Cholesterol, Calc 78 mg/dL (50-129) 07/07/22 12:59 HDL Cholesterol 49 mg/dL (60-100) L 07/07/22 12:59 LDL/HDL Ratio 1.59 RATIO (0.00-3.22) 07/07/22 12:59 Cholesterol/HDL Ratio 3.12 mg/dL (0.0-4.40) 07/07/22 12:59 TSH 3.31 uIU/mL (0.27-4.20) 07/07/22 12:59 Urine Color Yellow (Yellow) 07/07/22 12:50 Urine Appearance Clear (CLEAR) 07/07/22 12:50 Urine pH 5 (5-7) 07/07/22 12:50 Ur Specific [place] 1.010 (1.005-1.030) 07/07/22 12:50 Urine Protein Neg (Negative) 07/07/22 12:50 Urine Glucose (UA) Norm (Normal) 07/07/22 12:50 Urine Ketones Negative (Negative) 07/07/22 12:50 Urine Blood Neg (Negative) 07/07/22 12:50 Urine Nitrate Negative (Negative) 07/07/22 12:50 Urine Bilirubin Neg (Negative) 07/07/22 12:50 Urine Urobilinogen Norm mg/dL (Negative) 07/07/22 12:50 Ur Leukocyte Esterase Negative (Negative) 07/07/22 12:50 Vitals Last Vital Signs Temp 97.9 F 07/08/22 08:00 Pulse 69 07/08/22 08:00 Resp 14 07/08/22 08:00 BP 175/67 07/08/22 08:00 Pulse Ox 96 07/08/22 08:00 O2 Del Method 07/08/22 08:00 Discharge Plan Discharge Patient Disposition: Home Condition: Stable Prescriptions: Continued ergocalciferol (vitamin D2) 2,000 unit tablet 2,000 unit PO DAILY aspirin 81 mg tablet,delayed release (DR/EC) 81 mg PO DAILY furosemide 40 mg tablet 40 mg PO QAM Qty: 90 3RF pantoprazole [Protonix] 40 mg tablet,delayed release (DR/EC) 40 mg PO DAILY Qty: 14 0RF lisinopril 20 mg tablet 20 mg PO BID Qty: 180 3RF levothyroxine 25 mcg tablet 25 mcg PO DAILY Qty: 90 0RF hydralazine 25 mg Tablet 25 mg PO DAILY PRN (Reason: Blood Pressure) clopidogrel 75 mg tablet 75 mg PO DAILY amlodipine 10 mg tablet 10 mg PO BEDTIME simvastatin 20 mg tablet 20 mg PO DAILY Rx Instructions: TAKE 1 TABLET DAILY metoprolol tartrate 50 mg tablet 50 mg PO BID Discharge Orders: Discharge Order (Routine); Ordered 07/08/22 Ordered By: Trevor Lindquist Referrals: Landy Juárez MD [Physician] - 1 week Virginie Caldwell FNP [Primary Care Provider] - Discharge Diet: Cardiac Discharge Activity: Resume usual activity Patient Instructions: Opioid Safety Activity Restrictions/Additional Instructions: - If any recurrent strokelike symptoms please go to emergency room or call 911 -See your primary care provider this week for blood pressure check Discharge Attestations Time Spent in Discharge Care*: greater than 30 min Quality Metrics Clinical Quality Measures [ Cerebrovascular Accident { Contraindication to Antithrombotic: None; antithrombotic prescribed; Contraindication to Anticoagulation: Overlap treatment not indicated; Contraindication to Statin: None; Statin prescribed;}] Coding Level of Care Code 54253 Total time (in minutes) for Discharge: 40 Diagnoses CVA (cerebral vascular accident) I63.9 GERD (gastroesophageal reflux disease) K21.9 Hyperlipidemia, unspecified E78.5 Hyperlipidemia type: unspecified Essential (primary) hypertension I10
[2022-07-08 11:59] VITALS: BP 175/67; PULSE 69; RESP 14; TEMP 36.6; O2SAT 96
[2022-07-08 12:00] VITALS: BP 152/75; PULSE 58; RESP 15; TEMP 36.8; O2SAT 96
== END 2022-07-08 12:30 | disposition home or self-care (01) ==
LOC: ER 15:38 → MEDSURG 17:23
PROVIDERS: Admitting Provider Family Medicine; Emergency Provider Emergency Medicine; PCP Nurse Practitioner Family; Visit Provider Family Medicine
DX: I63.9 Cerebral infarction, unspecified (principal); K21.9 Gastro-esophageal reflux disease without esophagitis; E78.5 Hyperlipidemia, unspecified; I10 Essential (primary) hypertension; E03.9 Hypothyroidism, unspecified; Z79.82 Long term (current) use of aspirin; Z79.02 Long term (current) use of antithrombotics/antiplatelets; E88.81 Metabolic syndrome and other insulin resistance
CPT/HCPCS: 36415; 70496; 70498; 71045; 80053; 80061; 81003; 83036; 83735; 83880; 84100; 84443; 84484; 85025; 93005; 93306; 96372; 97161; 97165; 99285; G0378; J1650; J7030; Q9967

== ENCOUNTER 2022-07-30 09:17 | Outpatient (CLI) | payer MEDICARE, BC, SELFPAY ==
--- NOTE | 2022-07-30 11:00 | MR_ITS ---
WS: [id number] MRI BRAIN WITH AND WITHOUT CONTRAST HISTORY: I63.9 - Cerebral infarction, unspecified COMPARISON: 05/21/2018 TECHNIQUE: Multiplanar imaging performed through the brain with MultiHance 15 ml's IV. No acute infarcts are seen. Siddiqi-white matter differentiation is well preserved. Normal diffusion luis e ging. Mild small vessel ischemic changes. Very similar to the prior study. Small bilateral chronic la cunar infarcts in the cerebellum. Normal flow voids. Mild cerebral atrophy greatest involving the frontal temporal lobes and cerebellum. Prominent ventricles and extra-axial spaces on the basis of atrophy. Clivus and pituitary gland are normal. Postcontrast images are negative for masses or vascular malformations. Dural venous sinuses are normal. Paranasal sinuses: Well aerated with no significant disease. Mastoid air cells: Normal. Calvarium and scalp: Normal. MR/MR head wo/w con [id number] IMPRESSION: 1. Stable MRI brain. 2. No acute infarcts. 3. Atrophy and mild small vessel ischemic disease and chronic lacunar infarcts in the cerebellum are all stable. 4. No enhancing masses.
[2022-07-30] MEDS: gadobenate dimeglumine 20 mL vial IV (11:08)
== END 2022-07-30 09:18 | disposition home or self-care (01) ==
LOC: RAD 09:24
PROVIDERS: PCP Nurse Practitioner Family; Visit Provider Nurse Practitioner Family
DX: I63.9 Cerebral infarction, unspecified (principal); G93.0 Cerebral cysts
CPT/HCPCS: 70553; 72146; A9577

== ENCOUNTER 2022-07-30 09:26 | Outpatient (CLI) | payer MEDICARE, BC, SELFPAY ==
--- NOTE | 2022-07-30 09:30 | MR_ITS ---
WS: [id number] MRI THORACIC SPINE noncontrast. 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 COMPARISON: Prior MRI 03/27/2017. TECHNIQUE: Multiplanar sequences are performed in sagittal and axial planes. Moderate increase in thoracic kyphosis centered in the upper thoracic spine. Long curvature RIGHT sco liosis thoracic spine. The previously described concave deformity and abnormality in the upper thorac ic spine at the T1-2 level has resolved. This was probably the site of the prior thoracic spine surge ry. Focal narrowing of the thoracic cord at the T1-2 level with mild widening at the T2-3 level. Ther e is slight increased T2 signal. These findings are likely postoperative. Otherwise the appearance of the thoracic cord is normal. T1-2: Mild facet joint arthritis. No stenosis. Focal increased CSF along the ventral cord with sligh t mass effect upon the ventral thoracic cord. T2-3: Facet arthritis. No stenosis. Mild diffuse facet joint arthritis. No large disc protrusions or compression upon the cord. Disc spac es are narrowed. LEFT renal cyst 2.3 x 1.4 cm. MR/MR thoracic spin wo con* [id number] IMPRESSION: 1. Status post thoracic spine surgery with removal of the cystic mass in the u pper thoracic cord. Appropriate postsurgical changes. 2. Focal narrowing of the upper thoracic cord at T1-2 level with mild expansio n of the cord at T2-3. These may all be postsurgical changes. Very tiny amount of increased CSF fluid along the ventral thoracic cord at the T1-2 level could be the residual of a cyst or CSF. Much less deformity of the cord as compared t o the prior study. 3. Multilevel facet joint arthritis and disc disease. 4. Long curvature RIGHT scoliosis.
== END 2022-07-30 09:27 | disposition home or self-care (01) ==
LOC: RAD 09:27
PROVIDERS: PCP Nurse Practitioner Family; Visit Provider Nurse Practitioner Family
DX: G93.0 Cerebral cysts (principal); Z98.890 Other specified postprocedural states; M47.814 Spondylosis without myelopathy or radiculopathy, thoracic region; M41.9 Scoliosis, unspecified
CPT/HCPCS: 72146

== ENCOUNTER → 2022-08-01 14:30 | Outpatient (BNVA) | payer MEDICARE, BC, SELFPAY | PROVIDERS: PCP Nurse Practitioner Family; Referring Provider Family Medicine; Visit Provider Psychiatry & Neurology Neurology | DX: I69.398 Other sequelae of cerebral infarction (principal); G45.0 Vertebro-basilar artery syndrome; R53.1 Weakness; R42 Dizziness and giddiness; I10 Essential (primary) hypertension; E03.9 Hypothyroidism, unspecified; E83.42 Hypomagnesemia | CPT/HCPCS: 99203 ==

== ENCOUNTER 2022-08-28 10:41 | Emergency (ER) | payer MEDICARE, BC, SELFPAY ==
[2022-08-28 11:04] VITALS: BP 189/81; PULSE 59; RESP 16; TEMP 36.6; O2SAT 99
--- NOTE | 2022-08-28 11:15 | ECG_ITS ---
[facility] [place] Test Date: 2022-08-28 Pat Name: Citlalli Gardiner Department: Room: Gender: Female [employer]: : 1935 Requested By: Markus Diaz Order Number: [id number] Иван MD: Ruddy Bear M.D. Measurements Intervals [place] Rate: 57 P: 50 [place]: 201 QRS: -12 QRSD: 92 T: 5 QT: 386 QTc: 376 Interpretive Statements SINUS BRADYCARDIA VOLTAGE CRITERIA FOR LVH [MEETS CRITERIA IN ONE OF: R(aVL), S(V1), R(V5), R(V5/V6)+S(V1)] INTERPRETATION BASED ON A DEFAULT AGE OF 40 YEARS Compared to ECG 07/07/2022 18:04:01 Sinus rhythm no longer present Myocardial infarct finding no longer present Electronically Signed On 08-29-2022 1:15:45 CDT by Ruddy Bear M.D. [email or web address]
--- NOTE | 2022-08-28 11:48 | XRR_ITS ---
PROCEDURE INFORMATION: Exam: XR Chest Exam date and time: 08/28/2022 11:55 AM Age: 87 years old Clinical indication: Pain; Angina pectoris; Additional info: Chest pain TECHNIQUE: Imaging protocol: Radiologic exam of the chest. Views: 1 view. COMPARISON: CR XR chest 1V portable [id number] 07/07/2022 12:38 PM FINDINGS: Lungs: Unremarkable. No consolidation. Pleural spaces: Unremarkable. No pleural effusion. No pneumothorax. Heart/Mediastinum: Unremarkable. No cardiomegaly. Bones/joints: Unremarkable. XR/XR chest 1V portable [id number] IMPRESSION: No acute findings.
[2022-08-28 12:10] VITALS: BP 204/63; PULSE 58; RESP 13; O2SAT 97
--- NOTE | 2022-08-28 12:38 | ED_ITS ---
HPI - General Adult General: Chief complaint: General Medical Stated complaint: Jaw pain, Sweats Time Seen by Provider: 08/28/22 10:56 History of Present Illness: Patient presents the ER today with complaints of right facial right neck pain and tingling on her fingers. This started while the patient was at rest this morning and lasted for 5 minutes and subdued. Patient is currently not complaining of any pain tingling at all. Patient does have a history of strokes. MD complaint: Right facial neck pain tingling of fingers Onset (ago): hour(s) (A couple hours ago) Location: face and upper extremity Radiation: non-radiation Severity: mild Quality: other (Pain and tingling) Relieving factors: other (Time) Exacerbating factors: none Associated symptoms: Reports diaphoresis; Deny chest pain, dyspnea, headache(s), nausea, rash, palpitations or vomiting Treatments prior to arrival: none Review of Systems General: Reports: 10 or more systems reviewed and unremarkable except in HPI and below Const: Reports: diaphoresis; Denies: fever(s), chills or body aches Eyes: Denies: change in vision or photophobia ENMT: Denies: throat pain or odynophagia Card: Denies: chest pain, palpitations or irregular heart rhythm Resp: Denies: dyspnea, productive cough or non-productive cough GI: Denies: abdominal pain, nausea or vomiting : Denies: flank pain or difficulty voiding Musc: Reports: neck pain; Denies: back pain or extremity pain Skin/Breast: Denies: rash or pruritus Neuro: Denies: headache(s), numbness in extremities or weakness in extremities PFSH ED PFSH: Medical History Chronic osteoarthritis Essential (primary) hypertension Hyperlipidemia, unspecified Metabolic syndrome Migraine with aura and with status migrainosus, not intractable Vitamin D deficiency Surgical History H/O: hysterectomy History of back surgery (~2010) Hx of breast biopsy (~1983) negative results Family History Brother Cancer lung Father Stroke Mother Pulmonary embolism Social History Smoking and tobacco status: never smoked Alcohol intake: never Substance/Drug Use: never Lives independently: Yes Household members: children Housing: House Marital status: / Current occupational status: retired Current gender identity: Female Physical Exam Const: COMMON NORMALS: no acute distress, average body habitus, patient oriented x3, no limitations, healthy appearing, alert and well nourished HENMT: COMMON NORMALS: normocephalic, atraumatic, hearing grossly normal bilaterally, external ears normal, Normal external nose present and moist oral mucous membranes HEAD & SCALP: normocephalic and atraumatic NOSE: Normal external nose present EXTERNAL EAR: Yes external ears normal Eye: COMMON NORMALS: Equal, round and reactive pupils present, EOMs intact bilaterally, conjunctivae normal and no scleral icterus CONJUNCTIVA: Yes conjunctivae normal PUPIL: Yes Equal, round and reactive pupils present Neck/C-Spine: COMMON NORMALS: full ROM, no lymphadenopathy, supple, no meningeal signs, no JVD and Thyroid normal THYROID: Thyroid normal Lymph: LYMPHATIC: no lymphadenopathy noted Chest: COMMONS NORMALS: normal inspection of the chest and normal palpation of entire chest wall Resp: COMMON NORMALS: normal respiratory effort, No retractions, No use of accessory muscles and clear to auscultation bilaterally AUSCULTATION: clear to auscultation bilaterally Cardio: COMMON NORMALS: no JVD, regular rate, regular rhythm, S1 normal heart sound present, S2 normal heart sound present, No gallops present (Cardio), No c licks present (Cardio), No murmurs present (Cardio) and No rub (Cardio) RATE: regular rate RHYTHM: regular rhythm HEART SOUNDS: S1 normal heart sound present and S2 normal heart sound present GI: COMMON NORMALS: Normal to inspection, nondistended, normoactive bowel sounds present, Soft to palpation, non-tender, No hepatosplenomegaly present and no masses PALPATION: Yes Soft to palpation and Yes No hepatosplenomegaly present : COMMON NORMALS: Yes no CVA tenderness BLADDER/KIDNEY EXAM: Yes no CVA tenderness Back/Pelvis: COMMON NORMALS: no CVA tenderness Neuro: COMMON NORMALS: patient oriented x3 SENSORIUM/ORIENTATION: Yes alert MENINGEAL SIGNS: Yes no meningeal signs Course Vital Signs: Vital signs: Vital Signs Temperature 97.9 F 05 11:04 Pulse Rate 59 L 08/28/22 14:00 Respiratory Rate 16 08/28/22 14:00 Blood Pressure 198/65 08/28/22 14:00 Pulse Oximetry 95 08/28/22 14:00 Oxygen Delivery Me thod Room Air 08/28/22 14:00 MDM - General Adult Medical Decision Making Patient presents to the ER with right jaw pain diaphoresis, tingling of the fingers. This had all resolved by time the patient actually made to the ER. Lab work was obtained as well as EKGs and x-rays. Lab work showed a BUN slightly elevated at 24 and 1.2 and baseline troponin 2-hour troponin was benign. Chest x-ray showed no acute findings. Patient did have significant hypertension upon arrival to the ER that improved mildly before leaving. Patient be discharged home to follow-up with her primary care practitioner within the next 1 to 2 weeks. Differential Diagnosis Facial pain, diaphoresis, hypertension Medical Records I reviewed the patient's medical records. Lab Data I reviewed the patient's lab results. 08/28/22 12:35 08/28/22 12:35 Radiology Impressions Chest X-Ray 08/28/22 11:48 IMPRESSION: No acute findings. Laboratory Results WBC 9.6 10^3/uL (4.0-10.0) 08/28/22 12:35 RBC 4.40 10^6/uL (4.1-5.3) 08/28/22 12:35 Hgb 13.5 g/dL (11.5-15.3) 08/28/22 12:35 Hct 41.7 % (37.0-47.0) 08/28/22 12:35 MCV 94.8 fl (81-99) 08/28/22 12:35 MCH 30.7 pg (28.0-34.0) 08/28/22 12:35 MCHC 32.4 g/dL (30.0-36.0) 08/28/22 12:35 RDW 13.0 % (12.1-15.1) 08/28/22 12:35 Plt Count 264 10^3/cmm (130-400) 08/28/22 12:35 MPV 11.2 fL (7.4-10.4) H 08/28/22 12:35 Neut % (Auto) 66.2 % 08/28/22 12:35 Lymph % (Auto) 20.1 % 08/28/22 12:35 Quay % (Auto) 10.5 % 08/28/22 12:35 Eos % (Auto) 2.3 % 08/28/22 12:35 Baso % (Auto) 0.4 % 08/28/22 12:35 Neut # (Auto) 6.35 10^3/uL (1.8-7.7) 08/28/22 12:35 Lymph # (Auto) 1.9 10^3/uL (0.8-4.8) 08/28/22 12:35 Quay # (Auto) 1.0 10^3/uL (0.2-0.9) H 08/28/22 12:35 Eos # (Auto) 0.2 10^3/uL (0.0-0.8) 08/28/22 12:35 Baso # (Auto) 0.0 10^3/uL (0.0-0.1) 08/28/22 12:35 Nucleated RBC % (auto) 0 % 08/28/22 12:35 Nucleated RBCs # 0.0 /100WBC 08/28/22 12:35 PT 12.70 SECONDS (12.1-14.9) 08/28/22 12:35 INR 0.92 (0.8-1.2) 08/28/22 12:35 Sodium 139 mmol/L (136-145) 08/28/22 12:35 Potassium 4.6 mmol/L (3.5-5.1) 08/28/22 12:35 Chloride 101 mmol/L (98-107) 08/28/22 12:35 Carbon Dioxide 24 mmol/L (22-29) 08/28/22 12:35 Anion Gap 18.6 (5-19) 08/28/22 12:35 BUN 24 mg/dL (8-23) H 08/28/22 12:35 Creatinine 1.2 mg/dL (0.5-0.9) H 08/28/22 12:35 GFR Calculation Not Reportable 08/28/22 12:35 Glucose 98 mg/dL (65-115) 08/28/22 12:35 Calculated Osmolality 292 mOsm/kg (285-295) 08/28/22 12:35 Calcium 10.6 mg/dL (8.5-10.5) H 08/28/22 12:35 Magnesium 1.9 mg/dL (1.7-2.3) 08/28/22 12:35 Total Bilirubin 0.2 mg/dL (0.15-1.2) 08/28/22 12:35 AST 21 U/L (0-32) 08/28/22 12:35 ALT 17 U/L (0-33) 08/28/22 12:35 Alkaline Phosphatase 57 U/L (35-105) 08/28/22 12:35 Troponin T Baseline 12 ng/L (0-10) H 08/28/22 12:35 Troponin T 120 Minute 9.72 ng/L (0-10) 08/28/22 14:04 Total Protein 7.5 g/dL (6.6-8.7) 08/28/22 12:35 Albumin 5.0 g/dL (3.5-5.2) 08/28/22 12:35 Globulin 2.5 g/dL (1.3-4.6) 08/28/22 12:35 Urine Color Yellow (Yellow) 08/28/22 12:39 Urine Appearance Clear (CLEAR) 08/28/22 12:39 Urine pH 5 (5-7) 08/28/22 12:39 Ur Specific [place] 1.010 (1.005-1.030) 08/28/22 12:39 Urine Protein Neg (Negative) 08/28/22 12:39 Urine Glucose (UA) Norm (Normal) 08/28/22 12:39 Urine Ketones Negative (Negative) 08/28/22 12:39 Urine Blood Neg (Negative) 08/28/22 12:39 Urine Nitrate Negative (Negative) 08/28/22 12:39 Urine Bilirubin Neg (Negative) 08/28/22 12:39 Urine Urobilinogen Norm mg/dL (Negative) 08/28/22 12:39 Ur Leukocyte Esterase Negative (Negative) 08/28/22 12:39 EKG Data EKG 1: I personally reviewed and interpreted this EKG as follows: EKG interpretation date: 08/28/22 EKG interpretation time: 11:15 Prior EKG tracings: not available for review Interpretation: EKG showed ventricular rate of 57 bpm, OH interval 201, QRS duration 92, QTc of 379, sinus bradycardia, LVH, no ST-T wave changes Computer generated interpretation: Chest X-Ray 08/28/22 11:48 IMPRESSION: No acute findings. EKG 2: I personally reviewed and interpreted this EKG as follows: EKG interpretation date: 08/28/22 EKG interpretation time: 13:50 Prior EKG tracings: available for review Interpretation: EKG showed sinus bradycardia with ventricular rate of 57 bpm, OH interval 195, QRS duration 92, QTc of 397, LVH no ST-T wave changes Computer generated interpretation: Chest X-Ray 08/28/22 11:48 IMPRESSION: No acute findings. Discharge Plan Discharge Patient Disposition: Home Clinical Impression: Essential (primary) hypertension, Paresthesia Condition: Stable Prescriptions: No Action aspirin 81 mg tablet,delayed release (DR/EC) 81 mg PO QAM furosemide 40 mg tablet 40 mg PO QAM Qty: 90 3RF lisinopril 20 mg tablet 20 mg PO BID Qty: 180 3RF Vitamin D3 50 mcg (2,000 unit) Tablet 50 mcg PO QAM levothyroxine 25 mcg tablet 25 mcg PO QPM Protonix 40 mg tablet,delayed release (DR/EC) 40 mg PO QAM hydralazine 25 mg Tablet 25 mg PO DAILY PRN (Reason: Blood Pressure) clopidogrel 75 mg tablet 75 mg PO QAM amlodipine 10 mg tablet 10 mg PO BEDTIME simvastatin 20 mg tablet 20 mg PO BEDTIME metoprolol tartrate 50 mg tablet 50 mg PO BID Discharge Orders: Discharge ED (Routine); Ordered 08/28/22 Ordered By: Markus Diaz Referrals: Virginie Caldwell, [employer] [Primary Care Provider] - 1 week Patient Instructions: Hypertension, Paresthesia (ED) Activity Restrictions/Additional Instructions: Please take all your of your antihypertensive medicine as directed, please follow-up with your family practitioner within next 1 to 2 weeks as you may benefit for further evaluation testing. Coding Level of Care Code ED Manager Report for Jaren Moralez
[2022-08-28 12:54] LABS: Basophils % 0.4 %; Eosinophils # 0.2 10^3/uL (0.0-0.8); Eosinophils % 2.3 %; Hematocrit 41.7 % (37.0-47.0); Hemoglobin 13.5 g/dL (11.5-15.3); Lymphocytes # 1.9 10^3/uL (0.8-4.8); Lymphocytes % 20.1 %; Mean Corpuscular HGB Conc 32.4 g/dL (30.0-36.0); Mean Corpuscular Hemoglobin 30.7 pg (28.0-34.0); Mean Corpuscular Volume 94.8 fl (81-99); Mean Platelet Volume 11.2 fL (7.4-10.4); Monocytes % 10.5 %; Neutrophils # 6.35 10^3/uL (1.8-7.7); Neutrophils % 66.2 %; Nucleated Red Blood Cells % 0 %; Platelet Count 264 10^3/cmm (130-400); White Blood Count 9.6 10^3/uL (4.0-10.0)
[2022-08-28 13:11] LABS: INR 0.92 (0.8-1.2)
[2022-08-28 13:17] LABS: Troponin(5th) Baseline 12 ng/L (0-10)
[2022-08-28 13:18] LABS: Alanine Aminotransferase 17 U/L (0-33); Alkaline Phosphatase 57 U/L (35-105); Anion Gap 18.6 (5-19); Aspartate Amino Transferase 21 U/L (0-32); Blood Urea Nitrogen 24 mg/dL (8-23); Calcium 10.6 mg/dL (8.5-10.5); Carbon Dioxide 24 mmol/L (22-29); Chloride 101 mmol/L (98-107); Globulin 2.5 g/dL (1.3-4.6); Glucose 98 mg/dL (65-115); Magnesium 1.9 mg/dL (1.7-2.3); Osmolality Calculated 292 mOsm/kg (285-295); Potassium 4.6 mmol/L (3.5-5.1); Sodium 139 mmol/L (136-145); Total Bilirubin 0.2 mg/dL (0.15-1.2); Total Protein 7.5 g/dL (6.6-8.7)
[2022-08-28 13:28] LABS: Add Urine Microscopic? NO; Charge for UA Resulting for Rev
[2022-08-28 13:41] LABS: Bilirubin Urine Neg (Negative); Blood Urine Neg (Negative); Glucose Urine UA Norm (Normal); Ketones Urine Negative (Negative); Leukocyte Esterase Urine Negative (Negative); Nitrate Urine Negative (Negative); Protein Urine Neg (Negative); Urine Appearance Clear (CLEAR); Urine Color Yellow (Yellow); Urobilinogen Urine Norm (Negative); pH Urine 5 (5-7)
--- NOTE | 2022-08-28 13:49 | ECG_ITS ---
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 Measurements Intervals [place] Rate: 57 P: 43 UT: 195 QRS: -10 QRSD: 92 T: 14 QT: 404 QTc: 394 Interpretive Statements SINUS BRADYCARDIA VOLTAGE CRITERIA FOR LVH [MEETS CRITERIA IN ONE OF: R(aVL), S(V1), R(V5), R(V5/V6)+S(V1)] Compared to ECG 08/28/2022 11:15:27 No significant changes Electronically Signed On 08-29-2022 22:32:55 CDT by Ruddy Bear M.D. [email or web address]
[2022-08-28 14:00] VITALS: BP 198/65; PULSE 59; RESP 16; O2SAT 95
[2022-08-28 14:41] LABS: Troponin 5 2HR 9.72 ng/L (0-10)
[2022-08-28 15:03] LABS: Troponin 5 2HR Delta -2.28 ABS# (0-10)
== END 2022-08-28 15:40 | disposition home or self-care (01) ==
PROVIDERS: Emergency Provider Emergency Medicine; PCP Nurse Practitioner Family
DX: R20.2 Paresthesia of skin (principal); I10 Essential (primary) hypertension; Z79.82 Long term (current) use of aspirin; Z79.02 Long term (current) use of antithrombotics/antiplatelets; E78.5 Hyperlipidemia, unspecified
CPT/HCPCS: 36415; 71045; 80053; 81003; 83735; 84484; 85025; 85610; 93005; 99285

== ENCOUNTER → 2023-01-30 10:07 | Outpatient (BNVA) | payer MEDICARE, BC, SELFPAY | PROVIDERS: PCP Nurse Practitioner Family; Visit Provider Nurse Practitioner Family | DX: E03.9 Hypothyroidism, unspecified (principal); E55.9 Vitamin D deficiency, unspecified; E78.5 Hyperlipidemia, unspecified; I10 Essential (primary) hypertension; I63.9 Cerebral infarction, unspecified | CPT/HCPCS: 80053; 80061; 82306; 84443; 85025 ==

== ENCOUNTER → 2024-02-04 12:47 | Outpatient (BNVA) | payer MEDICARE, BC, SELFPAY | PROVIDERS: PCP Nurse Practitioner Family; Visit Provider Nurse Practitioner Family | DX: E03.9 Hypothyroidism, unspecified (principal); E55.9 Vitamin D deficiency, unspecified; Z79.899 Other long term (current) drug therapy | CPT/HCPCS: 80053; 80061; 82306; 82607; 84443; 85025 ==

== ENCOUNTER → 2024-02-17 12:57 | Outpatient (BNVA) | payer MEDICARE, BC, SELFPAY | PROVIDERS: PCP Nurse Practitioner Family; Visit Provider Nurse Practitioner Family | DX: M47.896 Other spondylosis, lumbar region (principal); M25.551 Pain in right hip; M25.552 Pain in left hip | CPT/HCPCS: 72100; 73523 ==

== ENCOUNTER → 2024-04-20 15:10 | Outpatient (BNVA) | payer MEDICARE, BC, SELFPAY | PROVIDERS: PCP Nurse Practitioner Family; Visit Provider Nurse Practitioner Family | DX: M19.011 Primary osteoarthritis, right shoulder (principal) | CPT/HCPCS: 73030 ==

== ENCOUNTER → 2024-12-02 14:10 | Outpatient (BNVA) | payer MEDICARE, BC, SELFPAY | PROVIDERS: PCP Nurse Practitioner Family; Visit Provider Nurse Practitioner Family | DX: I10 Essential (primary) hypertension (principal); I63.9 Cerebral infarction, unspecified; E03.9 Hypothyroidism, unspecified | CPT/HCPCS: 80053; 80061; 84439; 84443; 85025 ==